=== PATIENT | female | born 1960 | race Caucasian/White ===

== ENCOUNTER 2016-11-15 16:48 | Emergency (ER) | payer OTHER ==
[~2016-11-15] VITALS: Ht 165.1 cm; Wt 119.2 kg
[~2016-11-15 16:48] MED LIST: ALEVE220 M2 PO; ALEVE220 MG PO; BACTRIM,SEPT1 TABLET PO; CIPRO500 MG PO; COUMADIN2.5 MG PO; FLONASE16 G1 BOTH NARES; GLUCOPHAGE500 MG PO; HYDROCODON-ACE1 EAC7 PO; IRON325 MG PO; MAGNESIUM400 M1 PO; OMEPRAZOLE20 MG PO; PERCOCET 5/31 TABLET PO; POTASSIUM-9999 MG PO; PROAIR HFA8.5 GM IH; TYLENOL ARTHRI650 MG PO; TYLENOL EXTRA500 MG PO; VISTARIL25 MG PO
[2016-11-15] MEDS ORDERED: LIDODERM 5% P1 PATCH TD (20:07)
[2016-11-15 20:22] VITALS: BP 162/86
== END 2016-11-15 20:27 | disposition home or self-care (01) ==
LOC: EME 16:48
DX: S40.022A Contusion of left upper arm, initial encounter (principal); M19.90 Unspecified osteoarthritis, unspecified site; W23.0XXA Caught, crushed, jammed, or pinched between moving objects, initial encounter; Z91.013 Allergy to seafood; Z88.1 Allergy status to other antibiotic agents
CPT/HCPCS: 73060; 99281; 99283

== ENCOUNTER 2017-04-26 05:23 | Emergency (ER) | payer OTHER ==
[~2017-04-26] VITALS: Ht 165.1 cm; Wt 125.0 kg
[~2017-04-26 05:23] MED LIST changes: +LIDODERM 5% P1 PATCH TD
[2017-04-26 06:14] LABS: HEMATOCRIT 41.3 % (36.0-46.0); MCH 29.2 PG (29.0-34.0); MCHC 32.9 G/DL (30.0-36.0); MCV 88.6 FL (83-99); MEAN PLAT.VOLUME 10.7 uM^3 (9.5-12.4); PLATELET COUNT 220 K/uL (156-360); RBC DIS.WIDTH-CV 13.1 % (11.8-14.6); RBC DIS.WIDTH-SD 42.4 % (39-53); RED BLOOD COUNT 4.66 M/uL (3.80-5.20); WHITE BLOOD COUNT 13.8 K/uL (4.1-10.2)
[2017-04-26 06:19] LABS: CHLORIDE 104 mEq/L (99-109); POTASSIUM 4.4 mEq/L (3.7-5.4); SODIUM 140 mEq/L (136-147)
[2017-04-26 06:21] LABS: GLUCOSE 157 mg/dL (70-99)
[2017-04-26 06:22] LABS: ANION GAP 12 MEQ/L (2-14)
[2017-04-26 06:25] LABS: GFR ESTIMATE (CALCULATED) 55 mL/min/
[2017-04-26 06:26] LABS: UREA NITROGEN (BUN) 14 mg/dL (9-23)
[2017-04-26 07:49] LABS: ALKALINE PHOSPHATASE 95 IU/L (3-129); DIRECT BILIRUBIN 0.1 mg/dL (0.0-0.3); LIPASE 22 U/L (1.0-51.0); TOTAL BILIRUBIN 0.7 MG/DL (0.0-1.0)
[2017-04-26 08:05] LABS: ADD MIUA? YES; BILIRUBIN NEGATIVE; BLOOD MODERATE; COLOR YELLOW ((YELLOW)); GLUCOSE (STRIP) NEGATIVE; KETONES NEGATIVE; LEUKOCYTES LARGE; NITRITE NEGATIVE; PROTEIN (STRIP) 30; SPECIFIC GRAVITY 1.015 (1.000-1.030); UROBILINOGEN 0.2 MG/DL (0.2-1.0)
[2017-04-26 08:43] LABS: BACTERIA 2+ /HPF; CASTS NONE SEEN /LPF; CRYSTALS NONE SEEN; EPITHELIAL CELLS NONE SEEN /HPF; MUCUS NONE SEEN /LPF; UCUL ADDED? YES; WHITE BLOOD CELLS TNTC /HPF (0-5)
[2017-04-26] MEDS ORDERED: ZOFRAN ODT4 MG PO (09:34)
[2017-04-26] MEDS ORDERED: CIPRO500 MG PO (09:34)
[2017-04-26] MEDS ORDERED: PERCOCET 5/31 TABLET PO (09:34)
[2017-04-26 10:16] VITALS: BP 135/82
== END 2017-04-26 10:17 | disposition home or self-care (01) ==
LOC: EME 05:23
DX: N13.6 Pyonephrosis (principal); J45.909 Unspecified asthma, uncomplicated; I10 Essential (primary) hypertension; F32.9 Major depressive disorder, single episode, unspecified; Z88.1 Allergy status to other antibiotic agents; Z91.013 Allergy to seafood; Z91.010 Allergy to peanuts; Z88.8 Allergy status to other drugs, medicaments and biological substances
CPT/HCPCS: 74176; 80048; 80076; 81003; 83690; 85027; 87077; 87086; 87186; 99281; 99285; J0696; J1885; J2405; J7030